=== PATIENT | male | born 1945 | race Caucasian/White ===

== ENCOUNTER 2018-06-13 10:26 | Emergency (ER) | payer MEDICARE, MEDICAID ==
[~2018-06-13] VITALS: Ht 170.2 cm; Wt 72.6 kg
[~2018-06-13 10:26] MED LIST: LOSA50TA3 PO; NOR10 PO; OMEP40CA33 PO; SULF-113 PO; TAMS-11 PO
[2018-06-13 11:00] VITALS: BP_SYST 160
--- NOTE | 2018-06-13 13:06 | NUR ---
Patient to ER bed 06 to gown for evaluation. Side rails up.
--- NOTE | 2018-06-13 13:12 | NUR ---
Patient presented to E with injury to left heal of foot. Patient A&Ox4, ambulatory to ER, afebrile, resoirations equal bilat, skin pink warm, pedal pulse & posterial tibial pulse WNL, cap refil less than sec. Patient states he stepped on a nicole nail this morniong between [id number] and he is here in the ER for a tetanus shot.
--- NOTE | 2018-06-13 13:40 | NUR ---
ER at bedside examining patient.
[2018-06-13] MEDS ORDERED: MUPIROCIN 2% TOPICAL OINTMENT 22 GM TP ONE (14:00)
[2018-06-13] MEDS: DIPH-TET-PERTUS Vaccine 0.5 ML VIAL (ADACEL) I.M. ONE (14:16)
[2018-06-13 14:20] VITALS: BP_SYST 160
--- NOTE | 2018-06-13 14:20 | NUR ---
Patient given written and verbal discharge instructions and verbalizes understanding. ER MD discussed with patient the results and treatment provided. Patient in stable condition. ID arm band removed. Rx of Mupurcin given. Patient educated on pain management and to follow up with PMD. Pain Scale 0/10. Opportunity for questions provided and answered. Medication side effect fact sheet provided.
== END 2018-06-13 14:20 | disposition home or self-care (01) ==
LOC: SED 10:26
DX: S91.332A Puncture wound without foreign body, left foot, initial encounter (principal); K21.9 Gastro-esophageal reflux disease without esophagitis; I10 Essential (primary) hypertension; Z79.899 Other long term (current) drug therapy; W45.0XXA Nail entering through skin, initial encounter; Y93.89 Activity, other specified; Y92.89 Other specified places as the place of occurrence of the external cause; Y99.8 Other external cause status
CPT/HCPCS: 90715; 99283

== ENCOUNTER 2022-07-26 22:03 | Emergency (ER) | payer OTHER, MEDICAID ==
[~2022-07-26] VITALS: Ht 170.2 cm; Wt 70.8 kg
[~2022-07-26 22:03] MED LIST changes: +OMEP40CA20 PO; -OMEP40CA33 PO
[2022-07-26 22:25] VITALS: BP_SYST 108
[2022-07-26] MEDS ORDERED: NACL 0.9% 1,000 ML IV ONE (23:15)
[2022-07-27 00:10] LABS: BILIRUBIN,URINE NEGATIVE (NEGATIVE); BLOOD, URINE 3+ (NEGATIVE); CLARITY/URINE CLOUDY (CLEAR); COLOR,URINE YELLOW (YELLOW); GLUCOSE,URINE NEGATIVE (NEGATIVE); KETONES,URINE NEGATIVE (NEGATIVE); LEUKOCYTE ESTERASE ,URINE 2+ (NEGATIVE); NITRITE, URINE NEGATIVE (NEGATIVE); PROTEIN URINE 2+ (NEGATIVE); UROBILINOGEN,URINE 0.2 (0.2-1.0)
[2022-07-27 00:18] LABS: BASOPHILS # (AUTO) 0.1 K/uL (0.0-0.2); BASOPHILS % (AUTO) 0.7 % (0.0-2.0); EOSINOPHILS # (AUTO) 0.3 K/uL (0.0-0.4); EOSINOPHILS % (AUTO) 4.2 % (0.0-4.0); HEMATOCRIT 31.2 % (36-54); HEMOGLOBIN 10.6 g/dL (14.0-18.0); LYMPHOCYTES # (AUTO) 1.2 K/uL (1.0-5.5); LYMPHOCYTES % (AUTO) 15.5 % (20.5-51.5); MEAN CORPUSCULAR HEMOGLOBIN 35 pg (27-31); MEAN CORPUSCULAR HGB CONC 34 % (32-36); MEAN CORPUSCULAR VOLUME 103 fL (79.0-98.0); MONOCYTES # (AUTO) 1.2 K/uL (0.0-1.0); MONOCYTES % (AUTO) 15.2 % (1.7-9.3); NEUTROPHILS % (AUTO) 64.4 % (40.0-70.0); PLATELET COUNT (AUTO) 108 K/uL (130-430); RED BLOOD CELL COUNT(AUTO) 3.03 MIL/uL (4.2-6.2); WHITE BLOOD COUNT (AUTO) 7.8 K/uL (4.8-10.8)
[2022-07-27 00:33] LABS: ANION GAP 6 (5-15); CALCIUM 7.2 mg/dL (8.4-11.0); CHLORIDE 103 mmol/L (98-107); CREATININE 1.68 mg/dL (0.55-1.30); GLUCOSE 122 mg/dL (70-99); UREA NITROGEN, BLOOD 34 mg/dL (8-21)
[2022-07-27 00:39] LABS: BACTERIA,URINE MANY /HPF (None Seen); WBC,URINE >100 /HPF (0-3)
[2022-07-27 00:48] LABS: ALANINE AMINOTRANSFERASE 32 U/L (12-78); ALBUMIN 2.4 g/dL (3.4-4.8); ASPARTATE AMINOTRANSFERASE 21 U/L (10-37); LIPASE 326 U/L (73-393); TOTAL BILIRUBIN 0.6 mg/dL (0.0-1.0)
[2022-07-27] MEDS ORDERED: cefTRIAXone 1 GM in D5W 50 ML IV ONE (02:00)
[2022-07-27 03:06] VITALS: BP_SYST 122
[2022-07-27] MEDS ORDERED: SULF1TAB48 PO (03:25)
[2022-07-27] MEDS ORDERED: cefTRIAXone 1 GM in LIDOCAINE 1%, 20 ML MDV 2.1 ML IM ONE (03:45)
== END 2022-07-27 04:08 | disposition home or self-care (01) ==
LOC: SED 22:03
DX: I71.40 Abdominal aortic aneurysm, without rupture, unspecified (principal); N39.0 Urinary tract infection, site not specified; K21.9 Gastro-esophageal reflux disease without esophagitis; I10 Essential (primary) hypertension
CPT/HCPCS: 99285; 96360; 71045; 80053; 81000; 83690; 85025; 87040; 87086; 36415; 83605; 74177; 76376; 96372; Q9967; J7030; J0696; J2001

== ENCOUNTER 2022-08-23 21:32 | Emergency (ER) | payer BC, MEDICAID ==
[~2022-08-23] VITALS: Ht 170.2 cm; Wt 69.9 kg
[~2022-08-23 21:32] MED LIST changes: +SULF1TAB48 PO
[2022-08-23 22:20] VITALS: BP_SYST 136
[2022-08-23] MEDS ORDERED: DIPHENHYDRAMINE INJ 50 MG/ML VIAL IVP ONE (23:15)
[2022-08-23] MEDS ORDERED: NACL 0.9% 1,000 ML IV ONE ×2 (23:15)
[2022-08-23] MEDS ORDERED: METHYLPREDNISOLONE SOD SUCC 40 MG/ML VIAL IVP ONE (23:15)
[2022-08-23] MEDS ORDERED: ACETAMINOPHEN 500 MG TABLET PO ONE (23:15)
--- NOTE | 2022-08-23 23:33 | NUR ---
PATIENT PRESENTS TO ER WITH A FACIAL RASH AFTER TAKING BACTRIM FOR UTI, PATIENT STATES HIS THROAT "FEELS FINE", HEART RATE NOTED AT 122, 99.4 TYMPANIC TEMPERATURE, REPORT GIVEN TO CHANELL CAMPOS
[2022-08-24 00:12] LABS: BILIRUBIN,URINE NEGATIVE (NEGATIVE); BLOOD, URINE 3+ (NEGATIVE); CLARITY/URINE CLEAR (CLEAR); COLOR,URINE YELLOW (YELLOW); GLUCOSE,URINE NEGATIVE (NEGATIVE); KETONES,URINE NEGATIVE (NEGATIVE); LEUKOCYTE ESTERASE ,URINE TRACE (NEGATIVE); NITRITE, URINE NEGATIVE (NEGATIVE); PROTEIN URINE NEGATIVE (NEGATIVE); UROBILINOGEN,URINE 0.2 (0.2-1.0)
[2022-08-24] MEDS ORDERED: cefTRIAXone 1 GM IVPB PREMIX 50 ML IV ONE (00:15)
[2022-08-24 00:25] LABS: ANION GAP 8 (5-15); CALCIUM 7.4 mg/dL (8.4-11.0); CHLORIDE 98 mmol/L (98-107); CREATININE 1.72 mg/dL (0.55-1.30); GLUCOSE 102 mg/dL (70-99); UREA NITROGEN, BLOOD 31 mg/dL (8-21)
[2022-08-24 00:26] LABS: WBC,URINE 0-3 /HPF (0-3)
[2022-08-24 00:27] LABS: BACTERIA,URINE RARE /HPF (None Seen)
[2022-08-24 00:30] LABS: ALANINE AMINOTRANSFERASE 28 U/L (12-78); ALBUMIN 2.7 g/dL (3.4-4.8); ASPARTATE AMINOTRANSFERASE 23 U/L (10-37); TOTAL BILIRUBIN 0.4 mg/dL (0.0-1.0)
[2022-08-24 00:31] LABS: BASOPHILS % (AUTO) 0.8 % (0.0-2.0); EOSINOPHILS # (AUTO) 0.2 K/uL (0.0-0.4); HEMATOCRIT 30.5 % (36-54); HEMOGLOBIN 10.8 g/dL (14.0-18.0); LYMPHOCYTES # (AUTO) 1.1 K/uL (1.0-5.5); MEAN CORPUSCULAR HEMOGLOBIN 36 pg (27-31); MEAN CORPUSCULAR HGB CONC 35 % (32-36); MEAN CORPUSCULAR VOLUME 101 fL (79.0-98.0); MONOCYTES # (AUTO) 0.8 K/uL (0.0-1.0); MONOCYTES % (AUTO) 13.2 % (1.7-9.3); NEUTROPHILS # (AUTO) 3.6 K/uL (1.8-7.7); PLATELET COUNT (AUTO) 160 K/uL (130-430); RED BLOOD CELL COUNT(AUTO) 3.03 MIL/uL (4.2-6.2); RED CELL DISTRIBUTION WIDTH 15.6 % (9.0-15.0); WHITE BLOOD COUNT (AUTO) 5.7 K/uL (4.8-10.8)
[2022-08-24] MEDS ORDERED: cefTRIAXone 1 GM in D5W 50 ML IV ONE (01:15)
--- NOTE | 2022-08-24 01:22 | NUR ---
Admit bed requested Patient will be admitted to care of . Admitted to M/S unit. Diagnosis UTI SEPSIS Inpatient (Yes or No) YES Observation (Yes or No) NO Orientation concerns or request close to nursing station (Yes or No) Covid Status NO On vent or bipap NO Isolation requirements NO Needs a sitterNO From Home (Yes or if No enter name of facility) YES Requires Dialysis (Yes or No) NO Med Rec Completed (Yes of No) NO
--- NOTE | 2022-08-24 01:24 | NUR ---
ASSUMED PATIENT CARE IN BED AAOX3 DAUGHTER AT BEDSIDE, AWAITING FOR BED ASSIGNMENT.
--- NOTE | 2022-08-24 01:53 | NUR ---
[facility] CATH IN PLACE, PATIENT VOIDS 300 ML YELLOW URINE. PATIENT ASSISTED IN BED, WILL CONTINUE TO MONITOR.
--- NOTE | 2022-08-24 03:11 | NUR ---
PATIENT TO BE TRANSFERED, DAUGHTER REQUESTED TO BE D/C, SPOKE TO EDP REGARDING AMA/D/C.
[2022-08-24] MEDS ORDERED: DIPH25CA83 PO (03:14)
[2022-08-24] MEDS ORDERED: CEPH-548 PO (03:14)
[2022-08-24] MEDS ORDERED: ACET325T PO (03:14)
[2022-08-24] MEDS ORDERED: PHEN-890 PO (03:14)
--- NOTE | 2022-08-24 03:43 | NUR ---
PATIENT SIGNED AMA LEFT WITH DAUGHTER.
[2022-08-24 03:44] VITALS: BP_SYST 144
--- NOTE | 2022-08-24 03:47 | NUR ---
Patient does not wish to proceed with medical care recommended by EDP. Patient given information related to possible complications, up to and including , which could occur as a result of leaving hospital at this time. Patient verbalizes understanding of risks involved leaving against medical advice. Patient has signed AMA form.
== END 2022-08-24 03:44 | disposition left against medical advice (07) ==
LOC: SED 21:32
DX: N39.0 Urinary tract infection, site not specified (principal); D53.9 Nutritional anemia, unspecified; N17.9 Acute kidney failure, unspecified; E87.1 Hypo-osmolality and hyponatremia; E88.09 Other disorders of plasma-protein metabolism, not elsewhere classified; K21.9 Gastro-esophageal reflux disease without esophagitis; I10 Essential (primary) hypertension; Z16.30 Resistance to unspecified antimicrobial drugs; Z88.2 Allergy status to sulfonamides; Z79.899 Other long term (current) drug therapy; Z20.822 Contact with and (suspected) exposure to COVID-19
CPT/HCPCS: 99291; 96361; 96375; 87426; 80053; 81000; 85025; 87040; 87086; 36415; 83605; 96365; J1200; J7030; J0696; J1030